=== PATIENT | male | born 1945 | race Caucasian/White ===

== ENCOUNTER 2019-06-26 14:40 | Inpatient (IN) ==
[2019-06-26 15:40] LABS: Basophils % 0.2 %; Eosinophils # 0.1 K/mcL (0.0-0.6); Eosinophils % 0.3 %; Hemoglobin 15.3 g/dL (12.9-16.9); Immature Granulocytes % 0.8 % (0-4); Lymphocytes % 5.8 %; Mean Corpuscular HGB Conc 35.6 g/dL (31.6-35.5); Mean Corpuscular Hemoglobin 31.4 pg (28.0-33.3); Mean Corpuscular Volume 88.3 fL (83.0-100.0); Monocytes # 3.3 K/mcL (0.0-1.3); Neutrophils # 13.5 K/mcL (1.6-8.9); Platelet Count 209 K/mcL (140-400); Red Blood Count 4.87 M/mcL (4.19-5.50); Red Cell Distribution Width 13.2 % (11.5-14.5); Segmented Neutrophils % 74.9 %
[2019-06-26 16:01] LABS: BUN/Creatinine Ratio 22 (6-26); Blood Urea Nitrogen 30 mg/dL (8-23); Calcium 9.6 mg/dL (8.6-10.3); Carbon Dioxide 26 mEq/L (23-29); Chloride 93 mEq/L (98-107); Glucose 120 mg/dL (70-105); Osmolality,Calculated 277 (280-300); Potassium 4.2 mEq/L (3.5-5.1); Sodium 130 mEq/L (136-145); Troponin I 0.03 ng/mL (< 0.04); eGFR For African Americans > 60 (> 60); eGFR For Non-African Americans 51 (> 60)
[2019-06-26] MEDS ORDERED: Isovue-370 500 ML BOTTLE IVP ONE (18:10)
[2019-06-26] MEDS ORDERED: Ipratropium/Albuterol Neb 3 ML IH ONE (18:10)
[2019-06-26] MEDS ORDERED: Piperacillin/Tazobactam 3.375 GM in 0.9 % Sodium Chloride Mini Bag 100 ML IVPB ONE (18:16)
[2019-06-26] MEDS ORDERED: 0.9 % Sodium Chloride 1,000 ML IVC ONE (20:13)
[2019-06-26 20:42] LABS: INR 1.2; Prothrombin Time 13.9 Seconds (9.4-12.1)
[2019-06-26] MEDS ORDERED: Lidocaine -MPF 2% 2 ML VIAL ONE (21:32)
[2019-06-26] MEDS ORDERED: Lidocaine HCL 4 ML Topical Solution (Laryng-O-Jet Kit Sterile Pak) TP ONE (21:32)
[2019-06-26] MEDS ORDERED: *HR* Succinylcholine 200 MG/10 ML VIAL IVP ONE (21:32)
[2019-06-26] MEDS ORDERED: *HR* Midazolam HCl 2 MG/2 ML VIAL ONE (21:33)
[2019-06-26] MEDS ORDERED: *HR* FentaNYL (PF) 100 MCG/2 ML VIAL ONE ×2 (21:33→22:56)
[2019-06-26] MEDS ORDERED: *HR* Propofol 200 MG/20 ML VIAL IVP ONE (21:38)
[2019-06-26] MEDS ORDERED: Lidocaine 1% 20 ML MDV ONE ×2 (21:42→21:50)
[2019-06-26] MEDS ORDERED: Vancomycin 1,000 MG VIAL ONE ×2 (21:47→21:51)
[2019-06-26] MEDS ORDERED: Famotidine 20 MG/2 ML VIAL ONE (22:02)
[2019-06-26] MEDS ORDERED: Acetaminophen IV 1,000 MG/100 ML INFUS..BTL ONE (22:02)
[2019-06-26] MEDS ORDERED: EPHEDrine 50 MG/ML VIAL ONE (22:49)
[2019-06-26] MEDS ORDERED: *HR* OxyCODONE Immed Rel 5 MG TABLET PO ONE ×2 (23:21→23:48)
[2019-06-27] MEDS ORDERED: D5% in Water 1,000 ML IVC PRN ×2 (00:18→01:28)
[2019-06-27] MEDS ORDERED: *HR* Dextrose 50 % in Water (Syg) 50 ML SYRINGE IVP PRN (00:18)
[2019-06-27] MEDS ORDERED: Dextrose Gel 15 GM/37.5 ML TUBE PO PRN ×3 (00:18→01:28)
[2019-06-27] MEDS ORDERED: Naloxone 0.4 MG/ML INJ IVP PRN (00:18)
[2019-06-27] MEDS ORDERED: 0.9 % Sodium Chloride 1,000 ML IVC ONE (01:26)
[2019-06-27] MEDS ORDERED: Vancomycin (wt based) 1,000 MG VIAL IVPB SCH (02:00)
[2019-06-27] MEDS: Clindamycin 600 MG/50 ML 600 MG/50 ML IV.SOLN IVPB SCH ×4 (02:07→20:00)
[2019-06-27] MEDS: Insulin LISPRO 300 UNITS/3 ML VIAL SQ SCH ×5 (02:17→19:48)
[2019-06-27 02:32] LABS: Bilirubin,Urine Negative (Negative); Blood,Urine Negative (Negative); Clarity,Urine Clear (Clear); Color,Urine Yellow (Yellow); Glucose,Urine (UA) Normal (Normal); Ketones,Urine Negative (Negative); Leukocyte Esterase,Urine Negative (Negative); Nitrite,Urine Negative (Negative); PH,Urine 7.5 pH Units (5.0-8.0); Protein,Urine Negative (Neg-Trace); Specific Gravity,Urine 1.026 (1.010-1.025)
[2019-06-27 03:35] LABS: Basophils % 0.2 %; Eosinophils # 0.1 K/mcL (0.0-0.6); Eosinophils % 0.5 %; Hematocrit 38.5 % (37.5-50.1); Immature Granulocytes % 0.6 % (0-4); Lymphocytes # 1.3 K/mcL (0.6-4.6); Lymphocytes % 7.9 %; Mean Corpuscular HGB Conc 33.2 g/dL (31.6-35.5); Mean Corpuscular Hemoglobin 31.1 pg (28.0-33.3); Mean Corpuscular Volume 93.4 fL (83.0-100.0); Mean Platelet Volume 11.3 fL (9.4-12.4); Monocytes # 2.5 K/mcL (0.0-1.3); Monocytes % 15.5 %; Neutrophils # 11.9 K/mcL (1.6-8.9); Platelet Count 183 K/mcL (140-400); Red Blood Count 4.12 M/mcL (4.19-5.50); Red Cell Distribution Width 13.1 % (11.5-14.5); Segmented Neutrophils % 75.3 %; White Blood Count 15.9 K/mcL (4.3-11.1)
[2019-06-27 03:41] LABS: Hemoglobin 12.8 g/dL (12.9-16.9)
[2019-06-27 03:47] LABS: Alanine Aminotransferase 17 Units/L (7-52); Albumin 3.4 g/dL (3.5-5.7); Albumin/Globulin Ratio 1.1 (1.1-2.2); Alkaline Phosphatase 68 Units/L (34-104); Aspartate Amino Transferase 20 Units/L (13-39); BUN/Creatinine Ratio 20 (6-26); Bilirubin,Total 1.6 mg/dL (0.3-1.0); Blood Urea Nitrogen 26 mg/dL (8-23); Calcium 8.5 mg/dL (8.6-10.3); Carbon Dioxide 25 mEq/L (23-29); Chloride 97 mEq/L (98-107); Chol/HDL Ratio 6.7 (0-4.9); Cholesterol 133 mg/dL (< 200); Globulin 3.1 g/dL (2.4-3.5); Glucose 113 mg/dL (70-105); HDL Cholesterol 20 mg/dL (40-59); LDL Cholesterol,Calculated 85 mg/dL (0-99); Magnesium 1.9 mg/dL (1.6-2.6); Osmolality,Calculated 282 (280-300); Phosphorous 3.1 mg/dL (2.7-4.5); Potassium 3.4 mEq/L (3.5-5.1); Sodium 133 mEq/L (136-145); Total Protein 6.5 g/dL (6.4-8.9); Triglycerides 142 mg/dL (< 150); eGFR For African Americans > 60 (> 60); eGFR For Non-African Americans 53 (> 60)
[2019-06-27] MEDS: Piperacillin/Tazobactam 3.375 GM in 0.9 % Sodium Chloride Mini Bag 100 ML IVPB SCH ×2 (09:39→16:29)
[2019-06-28] MEDS: Piperacillin/Tazobactam 3.375 GM in 0.9 % Sodium Chloride Mini Bag 100 ML IVPB SCH ×4 (00:23→23:24)
[2019-06-28] MEDS: Clindamycin 600 MG/50 ML 600 MG/50 ML IV.SOLN IVPB SCH ×4 (02:20→20:41)
[2019-06-28] MEDS: Insulin LISPRO 300 UNITS/3 ML VIAL SQ SCH ×4 (08:54→20:42)
[2019-06-28 09:04] LABS: Estimated Average Glucose 123 mg/dl
[2019-06-28] MEDS: Aspirin Enteric Coated 81 MG Tablet PO SCH (09:05)
[2019-06-28] MEDS: Febuxostat [Uloric] 40 MG PO SCH (09:07)
[2019-06-29] MEDS: Clindamycin 600 MG/50 ML 600 MG/50 ML IV.SOLN IVPB SCH ×4 (02:38→20:34)
[2019-06-29 07:13] LABS: Hematocrit 37.3 % (37.5-50.1); Hemoglobin 12.4 g/dL (12.9-16.9); Mean Corpuscular HGB Conc 33.2 g/dL (31.6-35.5); Mean Corpuscular Hemoglobin 31.2 pg (28.0-33.3); Mean Corpuscular Volume 93.7 fL (83.0-100.0); Mean Platelet Volume 11.3 fL (9.4-12.4); Platelet Count 211 K/mcL (140-400); Red Blood Count 3.98 M/mcL (4.19-5.50); Red Cell Distribution Width 13.4 % (11.5-14.5)
[2019-06-29 07:15] LABS: White Blood Count 7.3 K/mcL (4.3-11.1)
[2019-06-29 07:30] LABS: BUN/Creatinine Ratio 15 (6-26); Blood Urea Nitrogen 17 mg/dL (8-23); Calcium 8.8 mg/dL (8.6-10.3); Carbon Dioxide 25 mEq/L (23-29); Chloride 104 mEq/L (98-107); Glucose 92 mg/dL (70-105); Osmolality,Calculated 289 (280-300); Potassium 3.9 mEq/L (3.5-5.1); Sodium 139 mEq/L (136-145); eGFR For African Americans > 60 (> 60); eGFR For Non-African Americans > 60 (> 60)
[2019-06-29] MEDS: Insulin LISPRO 300 UNITS/3 ML VIAL SQ SCH ×4 (08:25→20:35)
[2019-06-29] MEDS: Febuxostat [Uloric] 40 MG PO SCH (08:30)
[2019-06-29] MEDS: Aspirin Enteric Coated 81 MG Tablet PO SCH (08:30)
[2019-06-29] MEDS: Piperacillin/Tazobactam 3.375 GM in 0.9 % Sodium Chloride Mini Bag 100 ML IVPB SCH ×3 (08:34→23:53)
[2019-06-29] MEDS ORDERED: Nitroglycerin 0.4 MG TAB.SUBL SL PRN (13:31)
[2019-06-29] MEDS ORDERED: hydrOXYzine pamoate 25 MG CAPSULE PO PRN (13:31)
[2019-06-29] MEDS ORDERED: *HR* HYDROcodone/Acet 7.5/325 mg TABLET PO PRN (13:31)
[2019-06-29] MEDS: *HR* Heparin 5,000 UNIT/ML VIAL SQ SCH (17:42)
[2019-06-30] MEDS: Clindamycin 600 MG/50 ML 600 MG/50 ML IV.SOLN IVPB SCH ×3 (02:31→10:09)
[2019-06-30] MEDS: *HR* Heparin 5,000 UNIT/ML VIAL SQ SCH (05:16)
[2019-06-30 06:24] LABS: Basophils # 0.1 K/mcL (0.0-0.2); Basophils % 0.6 %; Eosinophils # 0.4 K/mcL (0.0-0.6); Eosinophils % 4.9 %; Hematocrit 39.9 % (37.5-50.1); Hemoglobin 13.3 g/dL (12.9-16.9); Immature Granulocytes % 1.3 % (0-4); Lymphocytes # 1.5 K/mcL (0.6-4.6); Lymphocytes % 19.1 %; Mean Corpuscular HGB Conc 33.3 g/dL (31.6-35.5); Mean Corpuscular Hemoglobin 31.3 pg (28.0-33.3); Mean Corpuscular Volume 93.9 fL (83.0-100.0); Mean Platelet Volume 10.6 fL (9.4-12.4); Monocytes # 1.1 K/mcL (0.0-1.3); Monocytes % 13.8 %; Neutrophils # 4.8 K/mcL (1.6-8.9); Platelet Count 234 K/mcL (140-400); Red Blood Count 4.25 M/mcL (4.19-5.50); Red Cell Distribution Width 13.5 % (11.5-14.5); Segmented Neutrophils % 60.3 %
[2019-06-30 06:49] LABS: BUN/Creatinine Ratio 14 (6-26); Blood Urea Nitrogen 17 mg/dL (8-23); Calcium 9.3 mg/dL (8.6-10.3); Carbon Dioxide 24 mEq/L (23-29); Chloride 104 mEq/L (98-107); Glucose 99 mg/dL (70-105); Magnesium 1.9 mg/dL (1.6-2.6); Osmolality,Calculated 294 (280-300); Potassium 3.8 mEq/L (3.5-5.1); Sodium 141 mEq/L (136-145); eGFR For African Americans > 60 (> 60); eGFR For Non-African Americans > 60 (> 60)
[2019-06-30 07:07] LABS: Platelet Estimate Normal (Normal); Reactive Lymphocytes Present (Not Present)
[2019-06-30] MEDS ORDERED: amLODIPine 5 MG TABLET PO SCH (09:00)
[2019-06-30] MEDS: Insulin LISPRO 300 UNITS/3 ML VIAL SQ SCH ×2 (09:25→11:16)
[2019-06-30] MEDS: Aspirin Enteric Coated 81 MG Tablet PO SCH (09:26)
[2019-06-30] MEDS: Piperacillin/Tazobactam 3.375 GM in 0.9 % Sodium Chloride Mini Bag 100 ML IVPB SCH ×2 (09:26→10:09)
[2019-06-30] MEDS: Febuxostat [Uloric] 40 MG PO SCH (09:27)
[2019-06-30 10:21] VITALS: BP 144/87
[2019-06-30] MEDS ORDERED: Aminoglycoside Consult 1 EACH MC ONE (17:44)
== END 2019-06-30 17:45 | disposition home health service (06) | DRG 853 ==
LOC: EMEROOARM 14:40 → 3NENU 14:40 → SUATTDRO 06-27 02:45
PROVIDERS: ADMIT Internal Medicine; ATTEND Internal Medicine

== ENCOUNTER 2021-07-20 20:31 | Inpatient (IN) ==
[2021-07-21] MEDS ORDERED: *HR* OxyCODONE Immed Rel 5 MG TABLET PO PRN (00:32)
[2021-07-21] MEDS ORDERED: Melatonin 3 MG TABLET PO PRN (00:32)
[2021-07-21] MEDS ORDERED: Naloxone 0.4 MG/ML INJ IVP PRN (00:32)
[2021-07-21] MEDS ORDERED: Acetaminophen 325 MG TABLET PO PRN (00:32)
[2021-07-21] MEDS ORDERED: *HR* Promethazine 25 MG/ML VIAL IM PRN (00:32)
[2021-07-21] MEDS ORDERED: Ondansetron 4 MG/2 ML VIAL IVP PRN (00:32)
[2021-07-21] MEDS: *HR* HYDROcodone/Acet 5/325 mg TABLET PO PRN ×2 (05:53→20:29)
[2021-07-21] MEDS: *HR* Enoxaparin 40 MG/0.4 ML SYRINGE SQ SCH (05:54)
[2021-07-21 06:30] LABS: Hematocrit 46.4 % (37.5-50.1); Hemoglobin 15.4 g/dL (12.9-16.9); Immature Granulocytes % 0.5 % (0-4); Lymphocytes # 0.6 K/mcL (0.6-4.6); Lymphocytes % 8.7 %; Mean Corpuscular HGB Conc 33.2 g/dL (31.6-35.5); Mean Corpuscular Hemoglobin 29.1 pg (28.0-33.3); Mean Corpuscular Volume 87.5 fL (83.0-100.0); Mean Platelet Volume 10.8 fL (9.4-12.4); Monocytes # 0.4 K/mcL (0.0-1.3); Monocytes % 6.6 %; Neutrophils # 5.3 K/mcL (1.6-8.9); Platelet Count 219 K/mcL (140-400); Red Cell Distribution Width 13.2 % (11.5-14.5); Segmented Neutrophils % 84.2 %; White Blood Count 6.3 K/mcL (4.3-11.1)
[2021-07-21 06:39] LABS: INR 1.1
[2021-07-21 06:57] LABS: Alanine Aminotransferase 17 Units/L (7-52); Albumin 3.2 g/dL (3.5-5.7); Alkaline Phosphatase 54 Units/L (34-104); Aspartate Amino Transferase 44 Units/L (13-39); BUN/Creatinine Ratio 31 (6-26); Bilirubin,Total 0.6 mg/dL (0.3-1.0); Blood Urea Nitrogen 22 mg/dL (8-23); Calcium 8.4 mg/dL (8.6-10.3); Carbon Dioxide 24 mEq/L (23-29); Chloride 109 mEq/L (98-107); Globulin 3.1 g/dL (2.4-3.5); Glucose 104 mg/dL (70-105); Lactate Dehydrogenase 381 Units/L (140-271); Magnesium 1.8 mg/dL (1.6-2.6); Osmolality,Calculated 292 (280-300); Potassium 3.6 mEq/L (3.5-5.1); Sodium 139 mEq/L (136-145); Total Protein 6.3 g/dL (6.4-8.9); eGFR For African Americans > 60 (> 60); eGFR For Non-African Americans > 60 (> 60)
[2021-07-21 07:09] LABS: Ferritin 633 ng/mL (20-250)
[2021-07-21 08:29] LABS: C-Reactive Protein 24 mg/L (Less than 10)
[2021-07-21] MEDS ORDERED: Dexamethasone Sodium Phos/PF 10 MG/ML VIAL IVP SCH (09:00)
[2021-07-21] MEDS: Aspirin Enteric Coated 81 MG Tablet PO SCH (10:26)
[2021-07-21] MEDS: Furosemide 20 MG/2 ML VIAL IVP SCH ×2 (10:26→16:50)
[2021-07-21] MEDS: Dexamethasone Sodium Phos/PF 10 MG/ML VIAL IVP SCH (10:26)
[2021-07-22] MEDS: *HR* Enoxaparin 40 MG/0.4 ML SYRINGE SQ SCH (05:36)
[2021-07-22 05:38] LABS: Fibrinogen 444 mg/dL (169-393)
[2021-07-22 05:41] LABS: D-Dimer 816 ng/mLFEU (0-500)
[2021-07-22 05:45] LABS: BUN/Creatinine Ratio 32 (6-26); Blood Urea Nitrogen 26 mg/dL (8-23); Calcium 8.8 mg/dL (8.6-10.3); Carbon Dioxide 25 mEq/L (23-29); Chloride 105 mEq/L (98-107); Glucose 110 mg/dL (70-105); Lactate Dehydrogenase 456 Units/L (140-271); Magnesium 1.7 mg/dL (1.6-2.6); Osmolality,Calculated 287 (280-300); Potassium 3.6 mEq/L (3.5-5.1); Sodium 136 mEq/L (136-145); eGFR For African Americans > 60 (> 60); eGFR For Non-African Americans > 60 (> 60)
[2021-07-22] MEDS: Furosemide 20 MG/2 ML VIAL IVP SCH ×2 (08:26→16:14)
[2021-07-22] MEDS: Dexamethasone Sodium Phos/PF 10 MG/ML VIAL IVP SCH (08:26)
[2021-07-22] MEDS: Aspirin Enteric Coated 81 MG Tablet PO SCH (08:26)
[2021-07-22] MEDS ORDERED: Loratadine 10 MG TABLET PO PRN (10:29)
[2021-07-22] MEDS: Dexmedetomidine HCl 400 MCG/100 ML MLS IVC SCH ×2 (17:18→22:27)
[2021-07-22] MEDS: Sacubitril/Valsartan 49/51 MG 1 TABLET PO SCH (20:03)
[2021-07-22] MEDS: allopurinoL 100 MG TABLET PO SCH (20:03)
[2021-07-22] MEDS ORDERED: Haloperidol Lactate 5 MG/ML VIAL IVP ONE (21:05)
[2021-07-22] MEDS ORDERED: *HR* LORazepam 2 MG/ML VIAL IVP ONE (22:46)
[2021-07-23] MEDS ORDERED: Magnesium Sulfate 1 GM/102 ML PIGGYBACK IVPB ONE (01:52)
[2021-07-23] MEDS: Dexmedetomidine HCl 400 MCG/100 ML MLS IVC SCH ×2 (02:46→21:55)
[2021-07-23] MEDS: *HR* Enoxaparin 40 MG/0.4 ML SYRINGE SQ SCH (05:09)
[2021-07-23] MEDS: Furosemide 20 MG/2 ML VIAL IVP SCH ×2 (07:52→17:45)
[2021-07-23] MEDS: Dexamethasone Sodium Phos/PF 10 MG/ML VIAL IVP SCH (07:52)
[2021-07-23] MEDS: Sacubitril/Valsartan 49/51 MG 1 TABLET PO SCH ×2 (08:05→21:06)
[2021-07-23] MEDS: allopurinoL 100 MG TABLET PO SCH ×2 (08:05→21:06)
[2021-07-23] MEDS: Aspirin Enteric Coated 81 MG Tablet PO SCH (08:05)
[2021-07-23] MEDS ORDERED: NON-FORMULARY MEDICATION 1 EACH EACH (Pravastatin Sodium [Pravachol] 80 MG Tablet) PO SCH (09:00)
[2021-07-23] MEDS ORDERED: *HR* LORazepam 2 MG/ML VIAL IVP ONE (20:11)
[2021-07-24] MEDS ORDERED: Morphine Sulfate 2 MG/ML SYRINGE IVP ONE (00:27)
[2021-07-24 02:21] LABS: Basophils % 0.2 %; Hematocrit 47.7 % (37.5-50.1); Hemoglobin 15.7 g/dL (12.9-16.9); Immature Granulocytes % 0.5 % (0-4); Lymphocytes # 0.4 K/mcL (0.6-4.6); Lymphocytes % 3.2 %; Mean Corpuscular HGB Conc 32.9 g/dL (31.6-35.5); Mean Corpuscular Hemoglobin 28.6 pg (28.0-33.3); Mean Platelet Volume 11.1 fL (9.4-12.4); Monocytes # 1.1 K/mcL (0.0-1.3); Monocytes % 9.7 %; Neutrophils # 9.6 K/mcL (1.6-8.9); Platelet Count 287 K/mcL (140-400); Red Blood Count 5.48 M/mcL (4.19-5.50); Red Cell Distribution Width 13.2 % (11.5-14.5); Segmented Neutrophils % 86.4 %
[2021-07-24 02:25] LABS: White Blood Count 11.1 K/mcL (4.3-11.1)
[2021-07-24 02:32] LABS: Fibrinogen 402 mg/dL (169-393)
[2021-07-24 02:34] LABS: D-Dimer 1698 ng/mLFEU (0-500)
[2021-07-24 02:39] LABS: BUN/Creatinine Ratio 42 (6-26); Blood Urea Nitrogen 36 mg/dL (8-23); Calcium 8.6 mg/dL (8.6-10.3); Carbon Dioxide 27 mEq/L (23-29); Chloride 106 mEq/L (98-107); Glucose 120 mg/dL (70-105); Osmolality,Calculated 308 (280-300); Potassium 3.3 mEq/L (3.5-5.1); Sodium 144 mEq/L (136-145); eGFR For African Americans > 60 (> 60); eGFR For Non-African Americans > 60 (> 60)
[2021-07-24 02:55] LABS: Ferritin 523 ng/mL (20-250)
[2021-07-24] MEDS: *HR* Enoxaparin 40 MG/0.4 ML SYRINGE SQ SCH (05:52)
[2021-07-24] MEDS: allopurinoL 100 MG TABLET PO SCH ×2 (08:08→21:26)
[2021-07-24] MEDS: Furosemide 20 MG/2 ML VIAL IVP SCH ×2 (08:08→17:24)
[2021-07-24] MEDS: Aspirin Enteric Coated 81 MG Tablet PO SCH (08:08)
[2021-07-24] MEDS: Sacubitril/Valsartan 49/51 MG 1 TABLET PO SCH ×2 (08:08→21:26)
[2021-07-24] MEDS: Dexamethasone Sodium Phos/PF 10 MG/ML VIAL IVP SCH (08:10)
[2021-07-24] MEDS: Dexmedetomidine HCl 400 MCG/100 ML MLS IVC SCH ×2 (08:26→19:26)
[2021-07-25] MEDS: Dexmedetomidine HCl 400 MCG/100 ML MLS IVC SCH ×3 (03:41→20:31)
[2021-07-25 06:03] LABS: BUN/Creatinine Ratio 51 (6-26); Blood Urea Nitrogen 40 mg/dL (8-23); Calcium 8.9 mg/dL (8.6-10.3); Carbon Dioxide 27 mEq/L (23-29); Chloride 108 mEq/L (98-107); Glucose 116 mg/dL (70-105); Magnesium 2.1 mg/dL (1.6-2.6); Osmolality,Calculated 315 (280-300); Phosphorous 3.3 mg/dL (2.7-4.5); Potassium 3.3 mEq/L (3.5-5.1); Sodium 147 mEq/L (136-145); eGFR For African Americans > 60 (> 60); eGFR For Non-African Americans > 60 (> 60)
[2021-07-25] MEDS: *HR* Enoxaparin 40 MG/0.4 ML SYRINGE SQ SCH (06:18)
[2021-07-25] MEDS: Dexamethasone Sodium Phos/PF 10 MG/ML VIAL IVP SCH (08:32)
[2021-07-25] MEDS: Furosemide 20 MG/2 ML VIAL IVP SCH ×2 (08:32→17:43)
[2021-07-25] MEDS: Aspirin Enteric Coated 81 MG Tablet PO SCH (08:33)
[2021-07-25] MEDS: allopurinoL 100 MG TABLET PO SCH ×2 (08:33→20:30)
[2021-07-25] MEDS: Sacubitril/Valsartan 49/51 MG 1 TABLET PO SCH ×2 (08:33→20:30)
[2021-07-26] MEDS: Dexmedetomidine HCl 400 MCG/100 ML MLS IVC SCH ×5 (01:49→22:56)
[2021-07-26 04:57] LABS: Basophils % 0.2 %; Hematocrit 51.1 % (37.5-50.1); Hemoglobin 16.9 g/dL (12.9-16.9); Immature Granulocytes % 0.8 % (0-4); Lymphocytes # 0.4 K/mcL (0.6-4.6); Lymphocytes % 3.8 %; Mean Corpuscular HGB Conc 33.1 g/dL (31.6-35.5); Mean Corpuscular Hemoglobin 28.8 pg (28.0-33.3); Mean Corpuscular Volume 87.2 fL (83.0-100.0); Mean Platelet Volume 10.8 fL (9.4-12.4); Monocytes # 1.1 K/mcL (0.0-1.3); Monocytes % 11.1 %; Neutrophils # 8.2 K/mcL (1.6-8.9); Platelet Count 291 K/mcL (140-400); Red Blood Count 5.86 M/mcL (4.19-5.50); Red Cell Distribution Width 13.2 % (11.5-14.5); Segmented Neutrophils % 84.1 %; White Blood Count 9.8 K/mcL (4.3-11.1)
[2021-07-26] MEDS: *HR* Enoxaparin 40 MG/0.4 ML SYRINGE SQ SCH (05:05)
[2021-07-26 05:45] LABS: Alanine Aminotransferase 24 Units/L (7-52); Albumin 3.5 g/dL (3.5-5.7); Albumin/Globulin Ratio 1.1 (1.1-2.2); Alkaline Phosphatase 60 Units/L (34-104); Aspartate Amino Transferase 29 Units/L (13-39); BUN/Creatinine Ratio 55 (6-26); Bilirubin,Total 1.7 mg/dL (0.3-1.0); Blood Urea Nitrogen 46 mg/dL (8-23); C-Reactive Protein 52 mg/L (Less than 10); Calcium 9.2 mg/dL (8.6-10.3); Carbon Dioxide 25 mEq/L (23-29); Chloride 109 mEq/L (98-107); Globulin 3.3 g/dL (2.4-3.5); Glucose 121 mg/dL (70-105); Lactate Dehydrogenase 438 Units/L (140-271); Magnesium 2.2 mg/dL (1.6-2.6); Osmolality,Calculated 315 (280-300); Potassium 3.5 mEq/L (3.5-5.1); Sodium 146 mEq/L (136-145); Total Protein 6.8 g/dL (6.4-8.9); eGFR For African Americans > 60 (> 60); eGFR For Non-African Americans > 60 (> 60)
[2021-07-26] MEDS: Dexamethasone Sodium Phos/PF 10 MG/ML VIAL IVP SCH (07:49)
[2021-07-26] MEDS: Furosemide 20 MG/2 ML VIAL IVP SCH ×2 (07:49→15:59)
[2021-07-26] MEDS: allopurinoL 100 MG TABLET PO SCH ×2 (10:54→21:23)
[2021-07-26] MEDS: Aspirin Enteric Coated 81 MG Tablet PO SCH (10:54)
[2021-07-26] MEDS: Sacubitril/Valsartan 49/51 MG 1 TABLET PO SCH ×2 (10:54→21:23)
[2021-07-26] MEDS ORDERED: Morphine Sulfate 2 MG/ML SYRINGE IVP PRN (11:02)
[2021-07-26 13:06] LABS: Ferritin 532 ng/mL (20-250)
[2021-07-26] MEDS: Haloperidol Lactate 5 MG/ML VIAL IVP PRN (22:53)
[2021-07-27] MEDS: Dexmedetomidine HCl 400 MCG/100 ML MLS IVC SCH ×5 (03:15→22:34)
[2021-07-27 04:18] VITALS: PULSE 50
[2021-07-27] MEDS: *HR* Enoxaparin 40 MG/0.4 ML SYRINGE SQ SCH (05:37)
[2021-07-27 05:45] LABS: Basophils % 0.3 %; Eosinophils % 0.3 %; Hematocrit 54.4 % (37.5-50.1); Immature Granulocytes % 0.6 % (0-4); Lymphocytes # 0.4 K/mcL (0.6-4.6); Lymphocytes % 3.4 %; Mean Corpuscular HGB Conc 31.8 g/dL (31.6-35.5); Mean Corpuscular Hemoglobin 28.8 pg (28.0-33.3); Mean Corpuscular Volume 90.5 fL (83.0-100.0); Mean Platelet Volume 11.4 fL (9.4-12.4); Monocytes # 1.2 K/mcL (0.0-1.3); Monocytes % 10.7 %; Neutrophils # 9.7 K/mcL (1.6-8.9); Platelet Count 325 K/mcL (140-400); Red Blood Count 6.01 M/mcL (4.19-5.50); Red Cell Distribution Width 13.4 % (11.5-14.5); Segmented Neutrophils % 84.7 %; White Blood Count 11.4 K/mcL (4.3-11.1)
[2021-07-27 05:47] LABS: Hemoglobin 17.3 g/dL (12.9-16.9)
[2021-07-27 06:12] LABS: BUN/Creatinine Ratio 54 (6-26); Blood Urea Nitrogen 56 mg/dL (8-23); Calcium 9.3 mg/dL (8.6-10.3); Carbon Dioxide 24 mEq/L (23-29); Chloride 111 mEq/L (98-107); Glucose 128 mg/dL (70-105); Osmolality,Calculated 327 (280-300); Potassium 3.3 mEq/L (3.5-5.1); Sodium 150 mEq/L (136-145); eGFR For African Americans > 60 (> 60); eGFR For Non-African Americans > 60 (> 60)
[2021-07-27] MEDS: Furosemide 20 MG/2 ML VIAL IVP SCH ×2 (07:34→18:21)
[2021-07-27] MEDS: Dexamethasone Sodium Phos/PF 10 MG/ML VIAL IVP SCH (07:34)
[2021-07-27] MEDS: Sacubitril/Valsartan 49/51 MG 1 TABLET PO SCH (07:43)
[2021-07-27] MEDS: Aspirin Enteric Coated 81 MG Tablet PO SCH (07:43)
[2021-07-27] MEDS: allopurinoL 100 MG TABLET PO SCH (07:44)
[2021-07-27] MEDS: Haloperidol Lactate 5 MG/ML VIAL IVP PRN ×2 (11:43→16:42)
[2021-07-27 11:59] VITALS: BP 132/88; TEMP 97.9; O2SAT 96
[2021-07-27] MEDS ORDERED: Morphine Sulfate 2 MG/ML SYRINGE IVP PRN (13:55)
[2021-07-27] MEDS: Morphine Sulfate 2 MG/ML SYRINGE IVP PRN ×5 (14:52→18:39)
[2021-07-27] MEDS: *HR* LORazepam 2 MG/ML VIAL IVP PRN ×2 (14:53→17:36)
[2021-07-27] MEDS: *HR* FentaNYL (PF) 100 MCG/2 ML VIAL IVP PRN ×2 (16:33→18:03)
== END 2021-07-27 23:45 | disposition expired | DRG 177 ==
LOC: 3NENU → SUATTDRO 07-21 00:45
PROVIDERS: ADMIT Internal Medicine; ATTEND Family Medicine